=== PATIENT | male | born 1945 | race Caucasian/White ===

== ENCOUNTER 2022-11-29 13:41 | Emergency (ER) | payer BC, MEDICARE ==
[~2022-11-29] VITALS: Ht 180.3 cm; Wt 76.1 kg
[2022-11-29 13:43] VITALS: TEMP 98.6
[2022-11-29 15:08] LABS: RSV AMPLIFICATION NEGATIVE (NEGATIVE)
[2022-11-29 17:55] VITALS: BP 138/61; O2SAT 98
== END 2022-11-29 17:58 | disposition home or self-care (01) ==
LOC: M ED 13:41
DX: J06.9 Acute upper respiratory infection, unspecified (principal); Z86.79 Personal history of other diseases of the circulatory system